=== PATIENT | female | born 1995 | race Caucasian/White ===

== ENCOUNTER 2016-05-08 03:01 | Emergency (ER) | payer SELFPAY ==
[2016-05-08 03:24] VITALS: BP 125/83; PULSE 100
--- NOTE | 2016-05-08 03:38 | ERPHSYRPT ---
- History of Present Illness Time Seen by Provider: 05/08/16 03:09 Source: patient Exam Limitations: no limitations Patient Subjective Stated Complaint: pt states felt rectal itching and reached down and pulled a small worm out of rectum. pt brought specimen in to er Triage Nursing Assessment: small white worm in bag. negative assessment other than c/o itchy rectum. no c/o abdominal pain Physician History: TONIGHT PT HAD ANAL ITCHING AND RECOVERED A WHITE WORM AND IS HERE FOR TREATMENT. PT DENIES CHEST PAIN, SHORTNESS OF AIR, ABDOMINAL PAIN, VOMITING, DIARRHEA. Allergies/Adverse Reactions: amoxicillin [From Augmentin] Allergy (Verified 01/25/16 13:16) clavulanic acid [From Augmentin] Allergy (Verified 01/25/16 13:16) naproxen Allergy (Verified 01/25/16 13:16) Home Medications: No Home Meds 1 ea MC UD 01/25/16 [History] Hx Tetanus, Diphtheria Vaccination/Date Given: No Hx Influenza Vaccination/Date Given: No Hx Pneumococcal Vaccination/Date Given: No Immunizations Up to Date: Yes - Review of Systems Genitourinary Symptoms: Hesitancy (FOR THE PAST 2 MONTHS) Skin: Pruritis (PRURITUS OF ANUS) All Other Systems: Reviewed and Negative - Past Medical History Pertinent Past Medical History: Yes GI Medical History: Gallbladder Disease Psycho-Social History: No Pertinent History, Depression Female Reproductive Disorders: Endometriosis - Past Surgical History Past Surgical History: Yes Other Surgical History: lap. endometr. - Social History Smoking Status: Current every day smoker Exposure to second hand smoke: Yes Drug Use: none Patient Lives Alone: No - Female History Hx Last Menstrual Period: last wk - Nursing Vital Signs Nursing Vital Signs: Initial Vital Signs Temperature 98.8 F Temperature Source Oral Pulse Rate 100 Respiratory Rate 20 Blood Pressure [Right Arm] 125/83 Pain Intensity 0 - Physical Exam General Appearance: alert Eye Exam: PERRL/EOMI Ears, Nose, Throat Exam: pharynx normal, moist mucous membranes Neck Exam: normal inspection Respiratory Exam: lungs clear, airway intact Cardiovascular Exam: normal heart sounds Gastrointestinal/Abdomen Exam: soft, normal bowel sounds Back Exam: normal range of motion Extremity Exam: normal inspection, No pedal edema Neurologic Exam: alert, cooperative Skin Exam: warm, dry Oxygen Delivery: Room Air - Course Nursing assessment & vital signs reviewed: Yes - Departure Time of Disposition: 03:38 Departure Disposition: Home Clinical Impression: PINWORM INFESTATION Condition: Fair Critical Care Time: No Instructions: Pinworm Additional Instructions: FOLLOW UP WITH PRIVATE DOCTOR TOMORROW. Prescriptions: Mebendazole [Emverm] 100 mg PO UD #1 tab.chew
== END 2016-05-08 04:07 | disposition home or self-care (01) ==
LOC: ED 03:01
DX: B80 Enterobiasis (principal)
CPT/HCPCS: 99282

== ENCOUNTER 2016-06-14 14:11 | Emergency (ER) | payer OTHER, SELFPAY ==
[2016-06-14 14:18] VITALS: BP 146/68; PULSE 108; O2SAT 98
--- NOTE | 2016-06-14 14:51 | ERPHSYRPT ---
- History of Present Illness Time Seen by Provider: 06/14/16 14:46 Source: patient Exam Limitations: no limitations Patient Subjective Stated Complaint: burning with uraintion for one week Triage Nursing Assessment: burning and irritation with urination for one week. pain during urination Physician History: The patient is a 20-year-old female with her significant other complaining of urinary discomfort and burning with urination for the past week. Timing/Duration: week(s) (1) Activites at Onset: none Quality: burning Onset Location: urethral Pain Radiation: none Severity of Pain-Max: mild Severity of Pain-Current: mild Prior abdominal problems: UTI Sexual intercourse history: non-contributory Modifying Factors: Improves With: nothing Associated Symptoms: denies symptoms Allergies/Adverse Reactions: amoxicillin [From Augmentin] Allergy (Verified 06/14/16 14:18) clavulanic acid [From Augmentin] Allergy (Verified 06/14/16 14:18) naproxen Allergy (Verified 06/14/16 14:18) Home Medications: No Home Meds 1 ea UD 06/14/16 [History] Hx Tetanus, Diphtheria Vaccination/Date Given: Yes Hx Influenza Vaccination/Date Given: No Hx Pneumococcal Vaccination/Date Given: No - Review of Systems Constitutional: No Fever, No Chills Eyes: No Symptoms Ears, Nose, & Throat: No Symptoms Respiratory: No Cough, No Dyspnea Cardiac: No Chest Pain, No Edema, No Syncope Abdominal/Gastrointestinal: No Abdominal Pain, No Nausea, No Vomiting, No Diarrhea Genitourinary Symptoms: Dysuria, Frequency Musculoskeletal: No Back Pain, No Neck Pain Skin: No Rash Neurological: No Dizziness, No Focal Weakness, No Sensory Changes Psychological: No Symptoms Endocrine: No Symptoms Hematologic/Lymphatic: No Symptoms Immunological/Allergic: No Symptoms All Other Systems: Reviewed and Negative - Past Medical History Pertinent Past Medical History: Yes GI Medical History: Gallbladder Disease Psycho-Social History: Depression Female Reproductive Disorders: Endometriosis - Past Surgical History Past Surgical History: Yes Other Surgical History: lap. endometr. - Social History Smoking Status: Current every day smoker Exposure to second hand smoke: Yes Drug Use: none Patient Lives Alone: No - Female History Hx Last Menstrual Period: 05/25/16 - Nursing Vital Signs Nursing Vital Signs: Initial Vital Signs Temperature 98.0 F Temperature Source Oral Pulse Rate 108 Respiratory Rate 18 Blood Pressure [Right Arm] 146/68 Pain Intensity 0 - Physical Exam General Appearance: no apparent distress, alert Eye Exam: PERRL/EOMI, eyes nml inspection Ears, Nose, Throat Exam: normal ENT inspection, TMs normal, pharynx normal, moist mucous membranes Neck Exam: normal inspection, non-tender, supple, full range of motion Respiratory Exam: normal breath sounds, lungs clear, No respiratory distress Cardiovascular Exam: regular rate/rhythm, normal heart sounds, normal peripheral pulses Gastrointestinal/Abdomen Exam: soft, No tenderness, No mass Pelvic Exam: not done Rectal Exam: not done Back Exam: normal inspection, normal range of motion, No CVA tenderness, No vertebral tenderness Extremity Exam: normal inspection, normal range of motion, pelvis stable Neurologic Exam: alert, oriented x 3, cooperative, stave cutter II-XII nml as tested, normal mood/affect, sensation nml, No motor deficits Skin Exam: normal color, warm, dry Lymphatic Exam: No adenopathy SpO2 Interpretation: normal SpO2: 98 Oxygen Delivery: Room Air Lab/Rad Data: Laboratory Results 06/14/16 Range/Units 15:10 Ur Collection Type VOID Urine Color DARK YELLOW (YELLOW) Urine Appearance CLOUDY (CLEAR) Urine pH 5.5 (5-6) Ur Specific Paicines >=1.030 (1.005-1.025) Urine Protein NEGATIVE (Negative) Urine Glucose (UA) NEGATIVE (NEGATIVE) mg/dL Urine Ketones NEGATIVE (NEGATIVE) Urine Nitrite NEGATIVE (NEGATIVE) Urine Bilirubin NEGATIVE (NEGATIVE) Urine Urobilinogen 0.2 (0-1) mg/dL Urine WBC (Auto) SMALL (NEGATIVE) Urine RBC (Auto) NEGATIVE (0-5) Joseph/ul Urine Microscopic WBC 25-50 (0-5) /HPF Ur Epithelial Cells MODERATE (FEW) /HPF Urine Bacteria MODERATE (NEGATIVE) /HPF Specimen Received 06/14/16 15:10 - Progress Progress: improved - Departure Time of Disposition: 09:04 Departure Disposition: Home Clinical Impression: UTI (urinary tract infection) Condition: Stable Critical Care Time: No
[2016-06-14 15:37] LABS: Collection Type VOID
[2016-06-14 15:38] LABS: Ph 5.5 (5-6)
[2016-06-14 15:39] LABS: COMPLETE URINE MICROSCOPIC? YES
[2016-06-14 15:50] LABS: ADD URINE CULTURE? YES (NO); Bacteria MODERATE /HPF (NEGATIVE); Epithelial Cells MODERATE /HPF (FEW); WBC 25-50 /HPF (0-5)
== END 2016-06-14 15:45 | disposition left against medical advice (07) ==
LOC: ED 14:11
DX: N39.0 Urinary tract infection, site not specified (principal)
CPT/HCPCS: 81000; 87086; 99282